=== PATIENT | male | born 1975 | race Caucasian/White ===

== ENCOUNTER 2018-08-27 16:37 | Observation (INO) ==
--- NOTE | 2018-08-27 16:56 | Emergency Department Note ---
ED Disposition Clinical Impression: Chest pain Disposition: Admitted as Observation Condition on Discharge: Good Referrals: Provider,MD Nicki [Referring] - Time of Disposition: 18:21 - Critical Care Critical Care Time: No Attestation: On 08/27/18, the high probability of a clinically significant, sudden or life threatening deterioration of the following system(s) required my full and direct attention, intervention and personal management. The time I documented below is in addition to time spent performing reported procedures but includes the following listed in this critical care notation. Medical Decision Making - Medical Records Medical records reviewed: Yes: I reviewed the patient's medical records. - Taj Inquiry Pt receiving controlled substance: No Taj was queried for this patient: No Vital Signs: 08/27/18 16:38 08/27/18 17:22 08/27/18 17:30 Temperature 98.1 F Temperature Source Oral Pulse Rate [Right Brachial] 74 71 78 Respiratory Rate 18 23 Blood Pressure [Right Arm] 153/93 H 127/74 114/70 Blood Pressure Mean [Right Arm] 113 91 84 Blood Pressure Source [Right Arm] Automatic Cuff Automatic Cuff Automatic Cuff Blood Pressure Position [Right Arm] Sitting Sitting Sitting 02 Sat by Pulse Oximetry 97 96 96 Oxygen Delivery Method Room Air Room Air Room Air 08/27/18 18:00 Temperature Temperature Source Pulse Rate [Right Brachial] 70 Respiratory Rate Blood Pressure [Right Arm] 159/81 H Blood Pressure Mean [Right Arm] 107 Blood Pressure Source [Right Arm] Automatic Cuff Blood Pressure Position [Right Arm] Sitting 02 Sat by Pulse Oximetry 99 Oxygen Delivery Method Room Air - Lab Data Lab Results 08/27/18 16:51: WBC 7.5, RBC 5.22, Hgb 15.4, Hct 45.5, MCV 87.2, MCH 29.6, MCHC 33.9, RDW 12.5, Plt Count 271, MPV 7.2 L, Neut % (Auto) 63.6, Lymph % (Auto) 30.2, [place] % (Auto) 5.0, Eos % (Auto) 0.9, Baso % (Auto) 0.4, Neut # (Auto) 4.8, Lymph # (Auto) 2.3, [place] # (Auto) 0.4, Eos # (Auto) 0.1, Baso # (Auto) 0.0 08/27/18 16:51: Sodium 140, Potassium 3.9, Chloride 104, Carbon Dioxide 26, Anion Gap 13.9, BUN 10, Creatinine 0.78, Estimated Creat Clear 122, Estimated GFR 109, Est GFR ( Amer) 131, Glucose 90, Calcium 9.1, Troponin I < 0.02 Result diagrams: 08/27/18 16:51 08/27/18 16:51 Orders (Tests/Meds): ED MEDICATIONS Discontinued Medications Generic Name Dose Route Start Last Admin Trade Name Cherrie PRN Reason Stop Dose Admin Aspirin 324 mg 08/27/18 16:45 08/27/18 16:59 Aspirin 81mg Chewable Tablet PO 08/27/18 16:46 324 mg ONCE ONE Administration ORDERS Category Date Time Status Chest XR -- portable [XR chest portable] Stat Exams 08/27/18 16:46 Taken Chest Pain HPI - General Chief Complaint: Chest Pain Stated Complaint: CHEST DISCOMFORT Time Seen by Provider: 08/27/18 16:54 Mode of Arrival: Ambulatory Source of Information: Patient Limitations: No Limitations Description of Symptoms (Recalled from ER Triage Doc. by RN): PT STATES ABOUT 15-20 MINS AGO HE BEGAN HAVING NUMBNESS TO HIS LEFT ARM; HIS LEFT FACE. - History of Present Illness HPI narrative: no fhx of cad. Patient has never had issues with heart/lung/kidneys. Healthy - Related Data Allergies Allergy/AdvReac Type Severity Reaction Status Date / Time No Known Allergies Allergy Verified 04/12/18 20:06 [facility] History - Hepatitis A Screen Drug use history?: No High risk sexual behaviors?: No History of sexually transmitted infection?: No Currently employed?: No Childcare worker?: No Do you have indoor plumbing?: Yes Do you have electricity?: Yes Attestation statement:: This patient has been screened for Hepatitis A risk factors. Medical History: Denies:: Diabetes Mellitus Type 1, Diabetes Mellitus Type 2, Hypertension Other Surgeries: Yes: Other (right wrist) - Social History Educational Level: Completed High School Smoking Status: Unknown if ever smoked Alcohol Intake: never Occupational Status: employed - Psychiatric History Expresses thoughts of harming self/others: None Suicide Plan Description: No Plan ROS Obtained: Yes All systems reviewed & no additional complaints - Constitutional Constitutional: Denies chills, Denies fever(s) - Cardiovascular Cardiovascular: Reports system reviewed and no additional complaints, except as docu, Reports chest pain, Reports chest pain at rest, Denies dyspnea - Respiratory Respiratory: Yes system reviewed and no additional complaints, except as docu - Gastrointestinal Gastrointestingal: Reports: system reviewed and no additional complaints, except as docu. Denies: abdominal pain - Neurologic Neurologic: Reports numbness (left facial numbness) Physical Exam - General General appearance: alert, in no apparent distress - Head Head exam: atraumatic, normocephalic, normal inspection - Eye Eye exam: Present: normal appearance, PERRL, EOMI - ENT ENT exam: Present: normal exam, normal oropharynx, mucous membranes moist, TM's normal bilaterally, normal external ear exam - Respiratory Respiratory exam: Present: normal lung sounds bilaterally. Absent: respiratory distress - Cardiovascular Cardiovascular exam: Present: regular rate, normal rhythm. Absent: JVD - Abdominal Exam Abdominal exam: Present: soft, normal bowel sounds. Absent: distention, tenderness, guarding - Back Exam Back exam: Present: normal inspection. Absent: tenderness - Neurological Exam Neurological exam: Present: alert, oriented X3 - Psychiatric Psychiatric exam: Present: normal affect, normal mood - Skin Skin exam: Present: warm, dry, intact, normal color
[2018-08-27 17:05] LABS: Basophils % 0.4 % (0.1-2.0); Eosinophils # 0.1 K/mm3 (0.0-0.4); Eosinophils % 0.9 % (0.1-12.0); Hematocrit 45.5 % (42.0-52.0); Hemoglobin 15.4 g/dL (14.1-18.0); Lymphocytes # 2.3 K/mm3 (0.7-4.5); Lymphocytes % 30.2 % (10-50); Mean Corpuscular HGB Conc 33.9 g/dL (31.8-35.4); Mean Corpuscular Hemoglobin 29.6 pg (27.0-31.2); Mean Corpuscular Volume 87.2 fl (80-94); Mean Platelet Volume 7.2 fl (7.4-10.4); Monocytes # 0.4 K/mm3 (0.1-1.0); Neutrophils # 4.8 K/mm3 (1.8-7.8); Neutrophils % 63.6 % (37.0-80.0); Platelet Count 271 K/mm3 (142-424); Red Blood Count 5.22 M/mm3 (4.60-6.20); Red Cell Distribution Width 12.5 % (11.5-17.5); White Blood Count 7.5 K/mm3 (4.8-10.8)
[2018-08-27 17:26] LABS: Anion Gap 13.9 mEq/L (5-15); Blood Urea Nitrogen 10 mg/dL (7-18); Calcium 9.1 mg/dL (8.5-10.1); Carbon Dioxide 26 mmol/L (21.0-32.0); Chloride 104 mmol/L (98-107); Glucose 90 mg/dL (74-106); Potassium 3.9 mmoL/L (3.5-5.1); Sodium 140 mmol/L (136-145)
--- NOTE | 2018-08-27 19:12 | History & Physical Report ---
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 He sat down and rested and then felt a clenching feeling in his chest that radiated into his jaw causing some numbness in the jaw and then into the left arm. He was able to move his arms and face normally, and called his who requested that he go to the emergency department. The pain lasted in the emergency department until he was given a nitroglycerin which resolved his pain Patient reports a history of normal lipid profile from family doctor in [place] 1 year ago, and otherwise has never taken medications for blood pressure or lipids. Essentially negative family history for cardiovascular disease and he is a non-smoker. However, given the exertional nature of his pain and the very significant historical character of the pain he was admitted for rule out DE and decisions about risk stratification. [facility] History I have reviewed the patient's past medical history: Yes Medical History: Denies:: Diabetes Mellitus Type 1, Diabetes Mellitus Type 2, Hypertension *Have you ever received a pneumonia vaccine?: No *Have you received a flu vaccine this season?: No Other Surgeries: Yes: Other (right wrist) - *Social History Educational Level: Completed High School Smoking Status: Unknown if ever smoked Alcohol Intake: never *Occupational Status:: employed Housing: house *Travel in the last 8 weeks: None - Psychiatric History Expresses thoughts of harming self/others: None Suicide Plan Description: No Plan Family Hx:: Coronary Artery Disease ( grandfather -neither of his parents have cardiac disease and his sibling is healthy) Review of Systems - Review of Systems Review of systems:: pertinent systems reviewed and negative unless documented below - Constitutional Denies anorexia, Denies body ache(s) - Eyes Denies blind spots, Denies blurry vision - ENT Denies abnormal hearing, Denies bleeding gums - *Cardiovascular Reports chest pain, Reports chest pain with activity, Reports shortness of breath, Reports irregular heart rhythm, Denies shortness of breath with activity, Denies leg swelling, Denies leg sores, Denies shortness of breath when lying down - *Respiratory Denies change in phlegm color, Denies chest congestion, Denies cough - *Gastrointestinal Denies abdominal pain, Denies belching, Denies bloating, Denies coffee ground vomit, Denies constipation - *Genitourinary Denies difficulty urinating - *Musculoskeletal Denies abnormal walking, Denies joint pain, Denies decreased muscle mass - Integumentary/Breasts Denies acne, Denies hair loss - *Neurologic Reports numbness (left facial numbness), Denies abnormal walking - Endocrine Denies cold intolerance - Hematologic/Lymphatic Denies easy bleeding, Denies easy bruising - Allergic/Immunologic Denies GI upset with certain foods Meds Allergies Allergy/AdvReac Type Severity Reaction Status Date / Time No Known Allergies Allergy Verified 04/12/18 20:06 Exam Vital signs and Labs for Last 24 Hours: Temp Pulse Resp BP Pulse Ox 97.7 F 71 18 146/81 H 99 08/27/18 19:01 08/27/18 19:01 08/27/18 19:01 08/27/18 19:01 08/27/18 19:01 Laboratory Results - last 24 hr 08/27/18 16:51: WBC 7.5, RBC 5.22, Hgb 15.4, Hct 45.5, MCV 87.2, MCH 29.6, MCHC 33.9, RDW 12.5, Plt Count 271, MPV 7.2 L, Neut % (Auto) 63.6, Lymph % (Auto) 30.2, [place] % (Auto) 5.0, Eos % (Auto) 0.9, Baso % (Auto) 0.4, Neut # (Auto) 4.8, Lymph # (Auto) 2.3, [place] # (Auto) 0.4, Eos # (Auto) 0.1, Baso # (Auto) 0.0 08/27/18 16:51: Sodium 140, Potassium 3.9, Chloride 104, Carbon Dioxide 26, Anion Gap 13.9, BUN 10, Creatinine 0.78, Estimated Creat Clear 122, Estimated GFR 109, Est GFR ( Amer) 131, Glucose 90, Calcium 9.1, Troponin I < 0.02 I & O for Last 24 hours: Intake & Output 03/30/08/26/18 08/27/18 08/28/18 11:59 11:59 11:59 11:59 Weight 298 lb 4 oz - Constitutional no acute distress, obese - *Routine HEENT Exam Head: Present: normocephalic, atraumatic Eye: Present: EOMI, PERRL, conjunctivae pink. Absent: scleral injection ENT: Absent: mucous membranes moist - *Routine Neck Exam Present: supple, full ROM. Absent: JVD, carotid bruit - Routine Chest/Breast/Axilla Exam Chest wall: Absent: tenderness - *Routine Respiratory Exam Present: CTA bilaterally. Absent: accessory muscle use, prolonged expiratory phase - *Routine Cardiovascular Exam Present: RRR, Normal S1, Normal S2 Comments: Ectopic beat generated by Valsalva maneuver and handgrip, no murmurs - *Routine Abdominal Exam Present: soft, normoactive bowel sounds. Absent: tenderness, distended, rebound - *Routine Extremities Exam Present: full ROM. Absent: cyanosis, clubbing, edema - Routine Back/Spine/Pelvis Exam Back/Spine: Present: full ROM - *Routine Skin Exam Present: intact. Absent: cyanosis, erythema - *Routine Neurological Exam Present: alert, oriented X3, normal reflexes - Routine Psychiatric Exam Present: normal affect, normal thought process Assessment and Plan (1) Exertional angina Current visit: Yes Status: Acute Category: Medical Code(s): I20.8 - Other forms of angina pectoris Significant history of pain per patient, agree with admission and evaluation with serial troponins. (2) Palpitations Current visit: Yes Status: Acute Category: Medical Code(s): R00.2 - P alpitations Check TSH and magnesium levels. Echocardiogram tomorrow to make sure patient has a structurally normal heart (3) BMI greater than 40 Current visit: Yes Status: Acute Category: Medical Complicates all aspects of his care
[2018-08-27 19:48] LABS: Thyroid Stimulating Hormone 2.6 uIU/ml (0.358-3.740)
[2018-08-28 05:54] LABS: Basophils % 0.6 % (0.1-2.0); Eosinophils # 0.1 K/mm3 (0.0-0.4); Eosinophils % 1.5 % (0.1-12.0); Hematocrit 43.3 % (42.0-52.0); Hemoglobin 14.5 g/dL (14.1-18.0); Lymphocytes # 2.5 K/mm3 (0.7-4.5); Lymphocytes % 35.5 % (10-50); Mean Corpuscular HGB Conc 33.6 g/dL (31.8-35.4); Mean Corpuscular Hemoglobin 29.6 pg (27.0-31.2); Mean Corpuscular Volume 88.1 fl (80-94); Mean Platelet Volume 7.4 fl (7.4-10.4); Monocytes # 0.4 K/mm3 (0.1-1.0); Neutrophils # 3.9 K/mm3 (1.8-7.8); Neutrophils % 56.5 % (37.0-80.0); Platelet Count 236 K/mm3 (142-424); Red Blood Count 4.92 M/mm3 (4.60-6.20); Red Cell Distribution Width 12.8 % (11.5-17.5)
[2018-08-28 06:00] LABS: Calcium 8.6 mg/dL (8.5-10.1)
--- NOTE | 2018-08-28 07:22 | Pharmacy Consult Notes ---
[facility] Pharmacy VTE Monitoring - Patient Demographics Admission date: 08/27/18 Report Date: 08/28/18 Time: 07:22 Allergies/Adverse Reactions: Patient Allergies No Known Allergies Allergy (Verified 04/12/18 20:06) Height: 1.75 m Weight: 135.284 kg Patient Problems: Current Active Problems Chest pain (Acute) Exertional angina (Acute) Palpitations (Acute) BMI greater than 40 (Acute) - VTE Risk Labs: VTE Related Lab Results Hgb 14.5 g/dL (14.1-18.0) 08/28/18 05:28 Hct 43.3 % (42.0-52.0) 08/28/18 05:28 Plt Count 236 K/mm3 (142-424) 08/28/18 05:28 BUN 11 mg/dL (7-18) 08/28/18 05:28 Creatinine 0.78 mg/dL (0.70-1.30) 08/28/18 05:28 Estimated Creat Clear 122 mL/min (50-200) 08/28/18 05:28 Was VTE Risk Assessment Performed: Yes VTE Score: 2 VTE Risk Level: Very Low Risk Clinical Trial Participant: No - Prophylaxis VTE Prophylaxis Ordered?: Yes Types of VTE Prophylaxis: TEDS Knee High Location of Applied Device: Refused
--- NOTE | 2018-08-28 08:09 | Progress Note ---
Internal Medicine - PN: Subj *Date: 08/28/18 *Time: 08:08 Interval history: Patient felt well through the night, no complaints. No further chest pain. Exam Vital signs and Labs for Last 24 Hours: Temp Pulse Resp BP Pulse Ox 98.3 F 68 18 101/48 L 97 08/28/18 04:00 08/28/18 04:00 08/28/18 04:00 08/28/18 04:00 08/28/18 04:00 Laboratory Results - last 24 hr 08/27/18 16:51: WBC 7.5, RBC 5.22, Hgb 15.4, Hct 45.5, MCV 87.2, MCH 29.6, MCHC 33.9, RDW 12.5, Plt Count 271, MPV 7.2 L, Neut % (Auto) 63.6, Lymph % (Auto) 30.2, [place] % (Auto) 5.0, Eos % (Auto) 0.9, Baso % (Auto) 0.4, Neut # (Auto) 4.8, Lymph # (Auto) 2.3, [place] # (Auto) 0.4, Eos # (Auto) 0.1, Baso # (Auto) 0.0 08/27/18 16:51: Sodium 140, Potassium 3.9, Chloride 104, Carbon Dioxide 26, Anion Gap 13.9, BUN 10, Creatinine 0.78, Estimated Creat Clear 122, Estimated GFR 109, Est GFR ( Amer) 131, Glucose 90, Calcium 9.1, Troponin I < 0.02 08/27/18 16:51: Magnesium 1.9, TSH 2.60 08/27/18 21:35: Troponin I < 0.02 08/28/18 00:33: Troponin I < 0.02 08/28/18 05:28: WBC 7.0, RBC 4.92, Hgb 14.5, Hct 43.3, MCV 88.1, MCH 29.6, MCHC 33.6, RDW 12.8, Plt Count 236, MPV 7.4, Neut % (Auto) 56.5, Lymph % (Auto) 35.5, [place] % (Auto) 6.0, Eos % (Auto) 1.5, Baso % (Auto) 0.6, Neut # (Auto) 3.9, Lymph # (Auto) 2.5, [place] # (Auto) 0.4, Eos # (Auto) 0.1, Baso # (Auto) 0.0 08/28/18 05:28: Sodium 142, Potassium 4.0, Chloride 105, Carbon Dioxide 26, Anion Gap 15.0, BUN 11, Creatinine 0.78, Estimated Creat Clear 122, Estimated GFR 109, Est GFR ( Amer) 131, Glucose 119 H D, Calcium 8.6 I & O for Last 24 hours: Intake & Output 08/25/18 08/26/18 08/27/18 08/28/18 11:59 11:59 11:59 11:59 Intake Total 616 / 616 Balance 616 / 616 Weight 298 lb 4 oz Narrative: Alert, oriented. Lungs are clear bilaterally with excellent air expansion, heart rate regular. No edema. Assessment and Plan (1) Exertional angina Current visit: Yes Status: Acute Category: Medical Code(s): I20.8 - Other forms of angina pectoris (2) Palpitations Current visit: Yes Status: Acute Category: Medical Code(s): R00.2 - Palpitations (3) BMI greater than 40 Current visit: Yes Status: Acute Category: Medical - Assessment and plan all Dx Assessment and Plan for all problems:: Echocardiogram preliminary report looks good. GA ruled out by enzyme and EKG criteria. Cardiology consultation for risk stratification today. Chest x-ray shows report consistent with bronchopneumonia but patient has no symptoms, no history of cough or congestion. This seems to be insignificant finding.
--- NOTE | 2018-08-28 08:22 | Consult Report ---
Addendum entered and electronically signed by CUCA Booker 08/28/18 13:42: Patient's GXT Myoview shows no evidence of ischemia with normal ejection fraction. Patient achieved 10 metastases of activity during the stress without chest pain. Patient can be discharged home from a cardiology standpoint. Original Note: History of Present Illness Consult date: 08/28/18 Requesting physician: Armen Case Consult reason: chest pain Chief complaint: Palpitations, chest pain Additional Medical History:: 1. Obesity 2. FH of CAD in mother and grandfather in there 50's History of present illness: 43-year-old white male with no significant medical history presented to the emergency department for onset of palpitations with dizziness which progressed to chest discomfort. 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 He denies any associated nausea, vomiting or diaphoresis. Patient drove himself to the ER for eval uation. He was given a sublingual nitroglycerin in the ER with relief shortly thereafter. He has had no further discomfort overnight. His troponins have returned normal. EKG is sinus rhythm with RBBB. Preliminary echo shows normal LVEF without significant valve disease. Patient denies history of tobacco use, diabetes, hypertension or hyperlipidemia. [facility] History Medical History: Denies:: Diabetes Mellitus Type 1, Diabetes Mellitus Type 2, Hypertension *Have you ever received a pneumonia vaccine?: No *Have you received a flu vaccine this season?: No Other Surgeries: Yes: Other (right wrist) - *Social History Educational Level: Completed High School Smoking Status: Unknown if ever smoked Alcohol Intake: never *Occupational Status:: employed Housing: house *Travel in the last 8 weeks: None - Psychiatric History Expresses thoughts of harming self/others: None Suicide Plan Description: No Plan Family Hx:: Coronary Artery Disease ( grandfather -neither of his parents have cardiac disease and his sibling is healthy) Meds Home Medications Medication Instructions Recorded Confirmed Type No Known Home Medications 08/28/18 08/28/18 History Allergies Allergy/AdvReac Type Severity Reaction Status Date / Time No Known Allergies Allergy Verified 04/12/18 20:06 Review of Systems - *Cardiovascular Reports chest pain, Reports rapid, pounding, or irregular heartbeat - *Respiratory Denies cough, Denies shortness of breath - *Gastrointestinal Denies abdominal pain, Denies loose stools - *Genitourinary Denies blood in urine - *Musculoskeletal Denies joint pain, Denies back pain - *Neurologic Reports numbness (left facial numbness), Denies abnormal walking, Denies abnormal hearing Exam Vital signs and Labs for Last 24 Hours: Temp Pulse Resp BP Pulse Ox 98.3 F 68 18 101/48 L 97 08/28/18 04:00 08/28/18 04:00 08/28/18 04:00 08/28/18 04:00 08/28/18 04:00 Laboratory Results - last 24 hr 08/27/18 16:51: WBC 7.5, RBC 5.22, Hgb 15.4, Hct 45.5, MCV 87.2, MCH 29.6, MCHC 33.9, RDW 12.5, Plt Count 271, MPV 7.2 L, Neut % (Auto) 63.6, Lymph % (Auto) 30.2, [place] % (Auto) 5.0, Eos % (Auto) 0.9, Baso % (Auto) 0.4, Neut # (Auto) 4.8, Lymph # (Auto) 2.3, [place] # (Auto) 0.4, Eos # (Auto) 0.1, Baso # (Auto) 0.0 08/27/18 16:51: Sodium 140, Potassium 3.9, Chloride 104, Carbon Dioxide 26, Anion Gap 13.9, BUN 10, Creatinine 0.78, Estimated Creat Clear 122, Estimated GFR 109, Est GFR ( Amer) 131, Glucose 90, Calcium 9.1, Troponin I < 0.02 08/27/18 16:51: Magnesium 1.9, TSH 2.60 08/27/18 21:35: Troponin I < 0.02 08/28/18 00:33: Troponin I < 0.02 08/28/18 05:28: WBC 7.0, RBC 4.92, Hgb 14.5, Hct 43.3, MCV 88.1, MCH 29.6, MCHC 33.6, RDW 12.8, Plt Count 236, MPV 7.4, Neut % (Auto) 56.5, Lymph % (Auto) 35.5, [place] % (Auto) 6.0, Eos % (Auto) 1.5, Baso % (Auto) 0.6, Neut # (Auto) 3.9, Lymph # (Auto) 2.5, [place] # (Auto) 0.4, Eos # (Auto) 0.1, Baso # (Auto) 0.0 08/28/18 05:28: Sodium 142, Potassium 4.0, Chloride 105, Carbon Dioxide 26, Anion Gap 15.0, BUN 11, Creatinine 0.78, Estimated Creat Clear 122, Estimated GFR 109, Est GFR ( Amer) 131, Glucose 119 H D, Calcium 8.6 I & O for Last 24 hours: Intake & Output 08/25/18 08/26/18 08/27/18 08/28/18 11:59 11:59 11:59 11:59 Intake Total 616 / 616 Balance 616 / 616 Weight 298 lb 4 oz - *Routine HEENT Exam Head: Present: normocephalic Eye: Present: EOMI, PERRL ENT: Present: mucous membranes moist - *Routine Neck Exam Present: supple. Absent: JVD, carotid bruit - *Routine Respiratory Exam Present: CTA bilaterally. Absent: accessory muscle use, rales, rhonchi, wheezes - *Routine Cardiovascular Exam Present: RRR. Absent: murmur, gallop, rubs - *Routine Abdominal Exam Present: soft. Absent: tenderness, distended, guarding - *Routine Extremities Exam Absent: edema, calf tenderness - *Routine Neurological Exam Present: alert, oriented X3, moving all extremities Assessment and Plan (1) Exertional angina Current visit: Yes Status: Acute Category: Medical Code(s): I20.8 - Other forms of angina pectoris (2) Palpitations Current visit: Yes Status: Acute Category: Medical Code(s): R00.2 - Palpitations (3) BMI greater than 40 Current visit: Yes Status: Acute Category: Medical - Assessment and plan all Dx Assessment and Plan for all problems:: 1. With normal troponins, normal LVEF on echo in a non-smoker and non-diabetic, will recommend proceeding with GXT myoview today. 2. Further recommendations to follow.
--- NOTE | 2018-08-28 14:52 | Discharge Summary ---
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 He sat down and rested and then felt a clenching feeling in his chest that radiated into his jaw causing some numbness in the jaw and then into the left arm. He was able to move his arms and face normally, and called his who requested that he go to the emergency department. The pain lasted in the emergency department until he was given a nitroglycerin which resolved his pain Patient reports a history of normal lipid profile from family doctor in [place] 1 year ago, and otherwise has never taken medications for blood pressure or lipids. Essentially negative family history for cardiovascular disease and he is a non-smoker. However, given the exertional nature of his pain and the very significant historical character of the pain he was admitted for rule out [place] and decisions about risk stratification. Hospital Course Hospital Course: Mr. Payton was admitted overnight and monitored with EKG and serial cardiac enzymes which remained normal. Cardiology was consulted and recommended stress test which took place today and was normal. He had no recurrence of chest pain and is ready for discharge with outpatient follow-up to discuss risk factor modification and other primary care needed. Objective Vital signs: Temp Pulse Resp BP Pulse Ox 97.9 F 66 16 127/77 98 08/28/18 08:00 08/28/18 08:00 08/28/18 08:00 08/28/18 08:00 08/28/18 08:45 Results Labs on day of discharge: Labs from last 24 hours 08/28/18 08/28/18 08/28/18 05:28 05:28 00:33 WBC 7.0 RBC 4.92 Hgb 14.5 Hct 43.3 MCV 88.1 MCH 29.6 MCHC 33.6 RDW 12.8 Plt Count 236 MPV 7.4 Neut % (Auto) 56.5 Lymph % (Auto) 35.5 [place] % (Auto) 6.0 Eos % (Auto) 1.5 Baso % (Auto) 0.6 Neut # (Auto) 3.9 Lymph # (Auto) 2.5 [place] # (Auto) 0.4 Eos # (Auto) 0.1 Baso # (Auto) 0.0 Sodium 142 Potassium 4.0 Chloride 105 Carbon Dioxide 26 Anion Gap 15.0 BUN 11 Creatinine 0.78 Estimated Creat Clear 122 Estimated GFR 109 Est GFR ( Amer) 131 Glucose 119 H D Calcium 8.6 Magnesium Troponin I < 0.02 TSH 08/27/18 08/27/18 08/27/18 21:35 16:51 16:51 WBC RBC Hgb Hct MCV MCH MCHC RDW Plt Count MPV Neut % (Auto) Lymph % (Auto) [place] % (Auto) Eos % (Auto) Baso % (Auto) Neut # (Auto) Lymph # (Auto) [place] # (Auto) Eos # (Auto) Baso # (Auto) Sodium 140 Potassium 3.9 Chloride 104 Carbon Dioxide 26 Anion Gap 13.9 BUN 10 Creatinine 0.78 Estimated Creat Clear 122 Estimated GFR 109 Est GFR ( Amer) 131 Glucose 90 Calcium 9.1 Magnesium 1.9 Troponin I < 0.02 < 0.02 TSH 2.60 08/27/18 16:51 WBC 7.5 RBC 5.22 Hgb 15.4 Hct 45.5 MCV 87.2 MCH 29.6 MCHC 33.9 RDW 12.5 Plt Count 271 MPV 7.2 L Neut % (Auto) 63.6 Lymph % (Auto) 30.2 [place] % (Auto) 5.0 Eos % (Auto) 0.9 Baso % (Auto) 0.4 Neut # (Auto) 4.8 Lymph # (Auto) 2.3 [place] # (Auto) 0.4 Eos # (Auto) 0.1 Baso # (Auto) 0.0 Sodium Potassium Chloride Carbon Dioxide Anion Gap BUN Creatinine Estimated Creat Clear Estimated GFR Est GFR ( Amer) Glucose Calcium Magnesium Troponin I TSH DS: Diagnosis - Discharge Diagnosis (1) Exertional angina Status: Acute (2) Palpitations Status: Acute (3) BMI greater than 40 Status: Acute Discharge Plan - Patient Discharge Instructions Patient Instructions: Angina, Echocardiogram, Heart-Healthy Diet, DI for Angina, DI for Arrhythmias, DI for Palpitations - Follow up Plan Home Medications: Home Medications Medication Instructions Recorded Confirmed Type No Known Home Medications 08/28/18 08/28/18 History Prescriptions/Medication Reconciliation: No Action No Known Home Medications
--- NOTE | 2018-08-28 19:35 | Discharge Summary ---
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 He sat down and rested and then felt a clenching feeling in his chest that radiated into his jaw causing some numbness in the jaw and then into the left arm. He was able to move his arms and face normally, and called his who requested that he go to the emergency department. The pain lasted in the emergency department until he was given a nitroglycerin which resolved his pain Patient reports a history of normal lipid profile from family doctor in [place] 1 year ago, and otherwise has never taken medications for blood pressure or lipids. Essentially negative family history for cardiovascular disease and he is a non-smoker. However, given the exertional nature of his pain and the very significant historical character of the pain he was admitted for rule out [place] and decisions about risk stratification. Hospital Course Hospital Course: Patient was admitted to hospital, ruled out for myocardial infarction by enzyme and EKG criteria and did well. Given the exertional nature of his pain and risk factors he was subjected to standard cardiac stress testing after normal echocardiogram was done, and patient did very well with this. Normal cardiac stress testing. Patient was discharged, follow-up in our office for new patient establish visit. Objective Vital signs: Temp Pulse Resp BP Pulse Ox 97.9 F 66 16 127/77 98 08/28/18 08:00 08/28/18 08:00 08/28/18 08:00 08/28/18 08:00 08/28/18 08:45 Narrative: See exam notes from this morning. Results Labs on day of discharge: Labs from last 24 hours 08/28/18 08/28/18 08/28/18 05:28 05:28 00:33 WBC 7.0 RBC 4.92 Hgb 14.5 Hct 43.3 MCV 88.1 MCH 29.6 MCHC 33.6 RDW 12.8 Plt Count 236 MPV 7.4 Neut % (Auto) 56.5 Lymph % (Auto) 35.5 [place] % (Auto) 6.0 Eos % (Auto) 1.5 Baso % (Auto) 0.6 Neut # (Auto) 3.9 Lymph # (Auto) 2.5 [place] # (Auto) 0.4 Eos # (Auto) 0.1 Baso # (Auto) 0.0 Sodium 142 Potassium 4.0 Chloride 105 Carbon Dioxide 26 Anion Gap 15.0 BUN 11 Creatinine 0.78 Estimated Creat Clear 122 Estimated GFR 109 Est GFR ( Amer) 131 Glucose 119 H D Calcium 8.6 Magnesium Troponin I < 0.02 TSH 08/27/18 08/27/18 21:35 16:51 WBC RBC Hgb Hct MCV MCH MCHC RDW Plt Count MPV Neut % (Auto) Lymph % (Auto) [place] % (Auto) Eos % (Auto) Baso % (Auto) Neut # (Auto) Lymph # (Auto) [place] # (Auto) Eos # (Auto) Baso # (Auto) Sodium Potassium Chloride Carbon Dioxide Anion Gap BUN Creatinine Estimated Creat Clear Estimated GFR Est GFR ( Amer) Glucose Calcium Magnesium 1.9 Troponin I < 0.02 TSH 2.60 DS: Diagnosis - Discharge Diagnosis (1) Exertional angina Status: Ruled-out (2) Palpitations Status: Resolved (3) BMI greater than 40 Status: Chronic Discharge Plan - Patient Discharge Instructions ACTIVITY: Continue current activity DIET: continue same diet Additional Instructions: Follow up with Dr. Case in 2 weeks. Patient Instructions: Angina, Echocardiogram, Heart-Healthy Diet, DI for Angina, DI for Arrhythmias, DI for Palpitations - Follow up Plan Follow up with: Armen Case MD [Staff Physician] - 2 weeks Disposition: Home, Self-Long-Term Medications: Home Medications Medication Instructions Recorded Confirmed Type No Known Home Medications 08/28/18 08/28/18 History Prescriptions/Medication Reconciliation: No Action No Known Home Medications
--- NOTE | 2018-08-28 19:52 | Cardiology Report ---
PROCEDURE: 2-D M-mode and color Doppler study INDICATIONS FOR THE TEST: Chest pain+ COPD Heart Murmur Tobacco Smoking Palpitations+ Fatigue Syncope Edema Hypertension Diabetes Mellitus Rheumatic Fever SOB+HUNTER Obesity+Hyperlipidemia Family History HD Additional History PATIENT INFORMATION HEIGHT: 69 WEIGHT:298 GENDER: Male B/P:146/81 2-D/M-MODE INTERPRETATION: 2-D MEASUREMENTS OBSERVED VALUES IN CMS Right Ventricular Dimension (RVDd) 3.4 Interventricular Septum (Thickness)(IVsd) 1.5 Left Ventricular Internal Dimensions(LVIDd) 5.4 Left Ventricular Posterior Wall (Thickness)(LVPWd) 1.1 Aortic Root 3.3 Aortic Cusp Separation 2.1 Left Atrial Dimensions (LAD) 3.6 2D 1. Left atrium is mildly enlarged, left ventricle is normal size, there is mild concentric left ventricular hypertrophy, visually estimated ejection fraction of 55% with no regional wall motion abnormality. 2. The right atrium and right ventricle are mildly enlarged with normal contractility. 3. The aortic valve is minimally thickened and fibrosed. 4. The mitral and tricuspid valve leaflets are minimally thickened 5. The pulmonic valve is poorly visualized. 6. No significant pericardial effusion noted. DOPPLER INTERROGATION: Doppler interrogation of the aortic, mitral and tricuspid valvular presence of mild mitral and tricuspid regurgitation, tricuspid regurgitation jet velocity is inadequate for calculation of the right ventricular systolic pressure, grade 1 diastolic dysfunction seen with tissue Doppler evidence of raised left atrial pressure. CONCLUSION: 1. Mildly enlarged left atrium, normal left ventricular size, mild concentric left ventricular hypertrophy, visually estimated ejection fraction of 55% with no regional wall motion abnormality, grade 1 diastolic dysfunction seen with tissue Doppler evidence of raised left atrial pressure. 2. Mildly enlarged right ventricle with normal contractility. 3. Mild mitral and tricuspid regurgitation 4. No significant pericardial effusion noted.
== END 2018-08-28 15:25 | disposition home or self-care (01) ==
LOC: 2ND 16:37 → ER 16:37 → 2ND 18:51
PROVIDERS: ADMIT Internal Medicine Adolescent Medicine; ATTEND Internal Medicine Adolescent Medicine
CPT/HCPCS: 36415; 71010; 71045; 78452; 80048; 83735; 84443; 84484; 85025; 93005; 93017; 93306; 99283; A9502; G0378

== ENCOUNTER 2019-05-24 08:00 | Outpatient (RCR) | payer OTHER, SELFPAY | END 2019-05-24 08:05 | disposition home or self-care (01) | LOC: PT 08:00 | PROVIDERS: Visit Provider Orthopaedic Surgery | DX: M25.561 Pain in right knee (principal) | CPT/HCPCS: 97010; 97014; 97016; 97033; 97035; 97110; 97163; G0283 ==

== ENCOUNTER 2020-11-10 18:16 | Emergency (ER) | payer MEDICAID, SELFPAY ==
[2020-11-10 18:22] VITALS: BP 149/74; PULSE 83; RESP 19; TEMP 37; O2SAT 100; BMI 51.3
--- NOTE | 2020-11-10 18:29 | XR_ITS ---
PROCEDURE INFORMATION: Exam: XR Left Ankle Exam date and time: 11/10/2020 6:29 PM Age: 45 years old Clinical indication: Ankle; Left; Patient HX: Pain when walking; . No trauma; . Patient did a lot of walking this past weekend; . Obesity TECHNIQUE: Imaging protocol: XR Left ankle. Views: 3 or more views. COMPARISON: No relevant prior studies available. FINDINGS: Bones/joints: Posterior and plantar calcaneal enthesophytes. No acute fracture or dislocation. Soft tissues: Increased density of the subcutaneous tissues of the visualized lower leg and ankle, likely edema and/or cellulitis. IMPRESSION: 1. No acute fracture or dislocation. 2. Increased density of the subcutaneous tissues of the visualized lower leg and ankle, likely edema and/or cellulitis.
--- NOTE | 2020-11-10 18:29 | XR_ITS ---
PROCEDURE INFORMATION: Exam: XR Left Foot Exam date and time: 11/10/2020 6:29 PM Age: 45 years old Clinical indication: Foot; Left; Patient HX: Pain when walking; . No trauma; . Patient did a lot of walking this past weekend; . Obesity TECHNIQUE: Imaging protocol: XR Left foot. Views: 3 or more views. COMPARISON: No relevant prior studies available. FINDINGS: Bones/joints: Plantar and posterior calcaneal enthesophytes. No acute fracture or dislocation. Soft tissues: Mild ankle soft tissue swelling. IMPRESSION: 1. Mild ankle soft tissue swelling. 2. No acute fracture or dislocation.
[2020-11-10 18:32] VITALS: BP 149/74; PULSE 83; RESP 19; TEMP 37; O2SAT 100
--- NOTE | 2020-11-10 18:53 | HMH.EDUTC ---
[facility] [place]position Clinical Impression: Left ankle pain Qualifiers: Chronicity: acute Qualified Code(s): M25.572 - Pain in left ankle and joints of left foot Disposition: Home, Self-Care Condition on Discharge: Good Instructions: DI for Ankle Pain Additional Instructions: Rest the extremity, Elevate the extremity as tolerated while you are resting. Take ibuprofen for pain. I sent in a prescription to your pharmacy. Follow up with Dr. Lockett (orthopedics). I put in a referral but you need to call her office and schedule an appointment. Follow up with your regular doctor. GO TO THE ER FOR ANY WORSENING SYMPTOMS Prescriptions: Ibuprofen [Ibuprofen 800mg Tablet] 800 mg PO Q8HP PRN #30 tab PRN Reason: Moderate Pain Transmission Status: Received by [facility] #[id number] Referrals: Silvia Looney PA [Primary Care Provider] - Rebecca Lockett DPM [Staff Physician] - Time of Disposition: 19:23 Medical Decision Making - Medical Records Medical records reviewed: No: I reviewed the patient's medical records. - Taj Inquiry Pt receiving controlled substance: No Vital Signs: 11/10/20 18:22 11/10/20 18:32 Temperature 98.6 F 98.6 F Temperature Source Oral Pulse Rate 83 Pulse Rate [Left] 83 Respiratory Rate 19 19 Blood Pressure 149/74 H Blood Pressure [Right Arm] 149/74 H Blood Pressure Mean [Right Arm] 99 02 Sat by Pulse Oximetry 100 - Radiology Data #1 Image(s): Ankle Image Reviewed: Yes I reviewed the patient's radiology image, Yes I have reviewed radiologist's interpretation Preliminary Findings: No Fracture Seen PROCEDURE INFORMATION: Exam: XR Left Ankle Exam date and time: 11/10/2020 6:29 PM Age: 45 years old Clinical indication: Ankle; Left; Patient HX: Pain when walking; . No trauma; . Patient did a lot of walking this past weekend; . Obesity TECHNIQUE: Imaging protocol: XR Left ankle. Views: 3 or more views. COMPARISON: No relevant prior studies available. FINDINGS: Bones/joints: Posterior and plantar calcaneal enthesophytes. No acute fracture or dislocation. Soft tissues: Increased density of the subcutaneous tissues of the visualized lower leg and ankle, likely edema and/or cellulitis. IMPRESSION: 1. No acute fracture or dislocation. 2. Increased density of the subcutaneous tissues of the visualized lower leg and ankle, likely edema and/or cellulitis. Medical Decision Narrative: There was no erythema or warmth of the area. No signs of cellulitis. [facility] [place] HPI - General Stated complaint: left ankle swollen with pain Time Seen by Provider: 11/10/20 18:53 Mode of Arrival: Ambulatory Source of Information: Patient Limitations: No Limitations Description of Symptoms (Recalled from Triage Doc. by RN): Pt states that he was on vacation and did a lot of walking and his left ankle and foot has been swollen and hurts to walk on for the last few days HEENT Symptoms (Recalled from RN notes): No Resp Symptoms (Recalled from RN notes): No Skin Symptoms (Recalled from RN notes): No MS Symptoms (Recalled from RN notes): Yes Functional Status (Recalled from RN notes): wnl - History of Present Illness Provider Complaint: He c/o left ankle pain for the past 3 days. He denies any known injury. He states that today his pain got worse and now it is difficult to walk on the foot and ankle. - Related Data Previous Rx's Medication Instructions Recorded Ibuprofen [Ibuprofen 800mg 800 mg PO Q8HP PRN #30 tab 11/10/20 Tablet] Allergies Allergy/AdvReac Type Severity Reaction Status Date / Time No Known Allergies Allergy Verified 11/10/20 18:29 - Worker's Comp Is this a Worker's Comp case?: No [facility] History - Hepatitis A Screen Drug use history?: No High risk sexual behaviors?: No History of sexually transmitted infection?: No Currently employed?: No C
== END 2020-11-10 19:31 | disposition home or self-care (01) ==
PROVIDERS: Emergency Provider Nurse Practitioner Family; PCP Nurse Practitioner Family
DX: M25.572 Pain in left ankle and joints of left foot (principal); X50.3XXA Overexertion from repetitive movements, initial encounter; Y92.89 Other specified places as the place of occurrence of the external cause
CPT/HCPCS: 73610; 73630; 99202; G0463